=== PATIENT | male | born 1945 | race Caucasian/White ===

== ENCOUNTER 2022-09-27 09:21 | Emergency (ER) | payer MEDICARE ==
[2022-09-27] MEDS ORDERED: Amoxicillin/Potassium Clav 875 MG TAB ONE (10:23)
[2022-09-27] MEDS ORDERED: Boostrix 0.5 ML (Tdap) VIAL (>/=7 yrs of age) ONE (10:24)
== END 2022-09-27 10:39 | disposition home or self-care (01) ==
LOC: NAV ERS 09:21
DX: L03.114 Cellulitis of left upper limb (principal); I10 Essential (primary) hypertension; Z23 Encounter for immunization; Z87.891 Personal history of nicotine dependence
CPT/HCPCS: 90471; 90715

== ENCOUNTER 2024-01-10 10:58 | Emergency (ER) | payer MEDICARE ==
[2024-01-10] MEDS ORDERED: Amoxicillin/Potassium Clav 875 MG TAB ONE (11:36)
== END 2024-01-10 11:45 | disposition home or self-care (01) ==
LOC: NAV ERS 10:58
DX: S61.451A Open bite of right hand, initial encounter (principal); L03.113 Cellulitis of right upper limb; I10 Essential (primary) hypertension; Z87.891 Personal history of nicotine dependence; W55.01XA Bitten by cat, initial encounter
CPT/HCPCS: 99283